=== PATIENT | female | born 1970 | race American Indian/Alaskan Native ===

== ENCOUNTER 2022-05-14 07:28 | Emergency (ER) | payer SELFPAY ==
[2022-05-14 14:01] LABS: Hematocrit 42.9 % (30.3-42.9); Hemoglobin 13.6 gm/dl (10.1-14.3); Mean Corpuscular HGB Conc 32 % (30-34); Mean Corpuscular Volume 78 fl (79-97); Platelet Count 234 K/mm3 (140-440); Red Blood Count 5.47 M/mm3 (3.65-5.03); Red Cell Distribution Width 17.7 % (13.2-15.2)
--- NOTE | 2022-05-14 14:01 | Emergency Department Report ---
ED Headache HPI - General Chief Complaint: Headache Stated Complaint: NUMBNESS ON THE RIGHT SIDE OF FACE Source: patient, RN notes reviewed Exam Limitations: no limitations - History of Present Illness Initial Comments: 51-year-old female presents to the ED complaining of a headache x1 day. She states that she was exercising on yesterday when she first noticed her unilateral right-sided headache with earache, weakness, funny feeling to her right side. Patient states that symptom resolved. She states that she feels dizzy when she noticed that she was bending down and came back. Patient states that she feels like her left ear is full. She states she does have sinus symptoms but she came to the ED out of concern symptom came back this a.m.. At present time patient has no symptom.. Patient denies any fever, denies any LOC, denies taking anticoagulant at present time. Allergies/Adverse Reactions: Allergies No Known Allergies Allergy (Unverified 05/14/22 07:44) Home Medications: Ambulatory Orders Cetirizine HCl/Pseudoephedrine [Zyrtec-D Tablet] 1 each PO BID 15 Days #30 tab 05/14/22 ED Review of Systems ROS: Stated complaint: NUMBNESS ON THE RIGHT SIDE OF FACE Other details as noted in HPI Constitutional: denies: chills, fever Eyes: denies: eye pain, eye discharge, vision change ENT: denies: ear pain, throat pain Respiratory: denies: cough, shortness of breath, wheezing Cardiovascular: denies: chest pain, palpitations Endocrine: no symptoms reported Gastrointestinal: denies: abdominal pain, nausea, diarrhea Genitourinary: denies: urgency, dysuria, discharge Musculoskeletal: denies: back pain, joint swelling, arthralgia Skin: denies: rash, lesions Neurological: denies: headache, weakness, paresthesias Psychiatric: denies: anxiety, depression Hematological/Lymphatic: denies: easy bleeding, easy bruising ED Past Medical Hx - Past Medical History Previous Medical History?: Yes Hx Hypertension: Yes - Surgical History Past Surgical History?: Yes Additional Surgical History: x 3 - Medications Home Medications: Home Medications Medication Instructions Recorded Confirmed Last Taken Type Cetirizine HCl/Pseudoephedrine 1 each PO BID 15 Days #30 tab 05/14/22 Unknown Rx [Zyrtec-D Tablet] ED Physical Exam - General Limitations: No Limitations General appearance: alert, in no apparent distress - Head Head exam: Present: atraumatic, normocephalic - Eye Eye exam: Present: normal appearance - ENT ENT exam: Present: mucous membranes moist - Neck Neck exam: Present: normal inspection - Respiratory Respiratory exam: Present: normal lung sounds bilaterally. Absent: respiratory distress - Cardiovascular Cardiovascular Exam: Present: regular rate, normal rhythm. Absent: systolic murmur, diastolic murmur, rubs, gallop - GI/Abdominal GI/Abdominal exam: Present: soft, normal bowel sounds - Extremities Exam Extremities exam: Present: normal inspection - Back Exam Back exam: Present: normal inspection - Neurological Exam Neurological exam: Present: alert, oriented X3 - Psychiatric Psychiatric exam: Present: normal affect, normal mood - Skin Skin exam: Present: warm, dry, intact, normal color. Absent: rash ED Course Vital Signs 05/14/22 05/14/22 05/14/22 07:45 13:22 15:21 Temperature 97.3 F L 97.9 F 98.0 F Pulse Rate 54 L 55 L 60 Respiratory 20 18 18 Rate Blood Pressure 125/69 Blood Pressure 126/79 121/72 [Right] O2 Sat by Pulse 100 100 99 Oximetry ED Medical Decision Making - Lab Data Result diagrams: 05/14/22 13:41 05/14/22 13:41 - Radiology Data [facility] [address] [place] [address] Cat Scan Report Signed Patient: MAURICIO INGRAM MR#: [id number] : 1970 Acct:[id number] Age/Sex: 51 / F ADM Date: 05/14/22 Loc: ED Attending Dr: Ordering Physician: DULCE EPPERSON Date of Service: 05/14/22 Procedure(s): CT head/brain wo con Accession Number(s): [id number] cc: DULCE EPPERSON CT HEAD WITHOUT CONTRAST INDICATION: headache TECHNIQUE: All CT scans at this location are performed using CT dose reduction for ALARA by means of automated exposure control. COMPARISON: 07/17/2010, report unavailable FINDINGS: BRAIN: No hemorrhage or mass effect are seen. No evidence of acute infarction is noted. ORBITS: Normal as visualized. SOFT TISSUES OF HEAD: Normal. CALVARIUM: Normal. VISUALIZED PARANASAL SINUSES AND MASTOID AIR CELLS: Clear. ADDITIONAL FINDINGS: None. IMPRESSION: No acute intracranial abnormality. Signer Name: Amandeep Mitchell MD Signed: 05/14/2022 2:42 PM Workstation Name: [id number] Transcribed By: LUZMA Dictated By: Amandeep Mitchell MD Electronically Authenticated By: Amandeep Mitchell MD Signed Date/Time: 05/14/221441 DD/ 37 TD/TT: - Medical Decision Making 51-year-old female presents to the ED complaining of a headache x1 day. She states that she was exercising on yesterday when she first noticed her unilateral right-sided headache with earache, weakness, funny feeling to her right side. Patient states that symptom resolved. She states that she feels dizzy when she noticed that she was bending down and came back. Patient states that she feels like her left ear is full. She states she does have sinus symptoms but she came to the ED out of concern symptom came back this a.m.. At present time patient has no symptom.. Patient denies any fever, denies any LOC, denies taking anticoagulant at present time. Patient states she is very active and works out daily. physical examination is unremarkable. CT of the head showed no abnormality. Rechecked the patient is resting quietly and comfortable and feeling better. I discussed the results of diagnostic study, my clinical impression and the plan for further treatment with the patient. Patient agrees with plan and discharge at this present time. All question addressed. I have given the patient instruction regarding a diagnosis ,expectation ,follow- up and return precaution. I explained to the patient that emergent condition may arise and to return to the ED for new worsen and any new persisting condition. I have explained the importance of following up with the primary care physician or referral physician listed below has instructed. The patient verbalized understanding of discharge instruction. Abnormal Lab Results 05/14/22 05/14/22 05/14/22 13:41 13:41 13:41 WBC 5.1 RBC 5.47 H Hgb 13.6 Hct 42.9 MCV 78 L MCH 25 L MCHC 32 RDW 17.7 H Plt Count 234 PT 13.5 INR 0.93 APTT 29.7 Sodium 139 Potassium 3.8 Chloride 101.1 Carbon Dioxide 27 Anion Gap 15 BUN 9 Creatinine 0.8 Estimated GFR > 60 BUN/Creatinine Ratio 11 Glucose 94 Calcium 11.5 H Total Bilirubin 0.30 AST 16 ALT 13 Alkaline Phosphatase 78 Total Protein 8.2 Albumin 4.6 Albumin/Globulin Ratio 1.3 Rechecked the patient is resting quietly quietly and comfortable and feeling better. I discussed the results of diagnostic study, my clinical impression and the plan for further treatment with the patient. Patient agrees with plan and discharge at this present time. All question addressed. I have given the patient instruction regarding a diagnosis ,expectation ,follow- up and return precaution. I explained to the patient that emergent condition may arise and to return to the ED for new worsen and any new persisting condition. I have explained the importance of following up with the primary care physician or referral physician listed below has instructed. The patient verbalized understanding of discharge instruction. Critical care attestation.: If time is entered above; I have spent that time in minutes in the direct care of this critically ill patient, excluding procedure time. ED Disposition Clinical Impression: Headache Qualifiers: Headache type: unspecified Headache chronicity pattern: acute headache Intractability: not intractable Qualified Code(s): R51.9 - Headache, unspecified Disposition: 01 HOME / SELF CARE / HOMELESS Is pt being admited?: No Does the pt Need Aspirin: No Condition: Stable Instructions: Sinusitis, Adult, General Headache Without Cause, [id number], Sinus Headache, [id number] Additional Instructions: return to ED for any worsening symptom Prescriptions: Cetirizine HCl/Pseudoephedrine [Zyrtec-D Tablet] 1 each PO BID 15 Days #30 tab Referrals: RAFA DAWKINS MD [Staff Physician] - 3-5 Days Forms: Work/School Release Form(ED) Time of Disposition: 15:08
[2022-05-14 14:13] LABS: INR 0.93 (0.87-1.13)
[2022-05-14 14:14] LABS: Partial Thromboplastin Time 29.7 Sec. (24.2-36.6)
[2022-05-14 14:30] LABS: Alanine Aminotransferase 13 units/L (7-56); Albumin 4.6 g/dL (3.9-5); BUN/Creatinine Ratio 11; Blood Urea Nitrogen 9 mg/dL (7-17); Calcium 11.5 mg/dL (8.4-10.2); Hemolysis Index 10
--- NOTE | 2022-05-14 14:47 | Cat Scan Report ---
CT HEAD WITHOUT CONTRAST INDICATION: headache TECHNIQUE: All CT scans at this location are performed using CT dose reduction for ALARA by means of automated exposure control. COMPARISON: 07/17/2010, report unavailable FINDINGS: BRAIN: No hemorrhage or mass effect are seen. No evidence of acute infarction is noted. ORBITS: Normal as visualized. SOFT TISSUES OF HEAD: Normal. CALVARIUM: Normal. VISUALIZED PARANASAL SINUSES AND MASTOID AIR CELLS: Clear. ADDITIONAL FINDINGS: None. IMPRESSION: No acute intracranial abnormality. Signer Name: Amandeep Mitchell MD Signed: 05/14/2022 2:42 PM Workstation Name: [id number]
[2022-05-14 15:23] VITALS: BP 121/72
== END 2022-05-14 15:21 | disposition home or self-care (01) ==
LOC: ED 07:28
DX: R51.9 Headache, unspecified (principal); I10 Essential (primary) hypertension; Z98.890 Other specified postprocedural states
CPT/HCPCS: 36415; 70450; 80053; 85027; 85610; 85730; 99284